=== PATIENT | male | born 1995 | race African-American/Black ===

== ENCOUNTER 2025-03-14 00:56 | Emergency (ER) | payer SELFPAY ==
[~2025-03-14] VITALS: Ht 175.3 cm; Wt 82.0 kg
[2025-03-14 01:02] VITALS: TEMP 37.1; O2SAT 97
[2025-03-14 04:21] VITALS: BP 101/58; PULSE 78; RESP 16; O2SAT 97
== END 2025-03-14 04:40 | disposition home or self-care (01) ==
LOC: ER 01:05
DX: T51.0X1A Toxic effect of ethanol, accidental (unintentional), initial encounter (principal); X58.XXXA Exposure to other specified factors, initial encounter; Y90.9 Presence of alcohol in blood, level not specified
CPT/HCPCS: 99283